=== PATIENT | male | born 1970 | race Caucasian/White ===

== ENCOUNTER → 2017-05-21 | Outpatient (CLI) | payer OTHER ==
[2016-04-16 10:30] VITALS: BP 121/72
[~2017-05-21] MED LIST: HYDR1TAB10 PO
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
== END | disposition home or self-care (01) ==
LOC: RAD 15:21
PROVIDERS: ATTEND Family Medicine
DX: M19.012 Primary osteoarthritis, left shoulder (principal); G89.29 Other chronic pain; V29.9XXD Motorcycle rider (driver) (passenger) injured in unspecified traffic accident, subsequent encounter
CPT/HCPCS: 73030

== ENCOUNTER → 2018-06-18 | Outpatient (CLI) | payer OTHER ==
[2016-04-16 10:30] VITALS: BP 121/72
[~2018-06-18] MED LIST changes: +IOHEXOL 240 MG/ML 50ML VIAL. ONE; +IOHEXOL 240 MG/ML 50ML VIAL. PO ONE; +IOHEXOL 300 MG/ML 75 ML VIAL. IV ONE
--- NOTE | 2018-06-18 13:30 | RAD ---
Examination: CT of the abdomen pelvis with oral and IV contrast HISTORY: History of right lower quadrant abdominal pain for 2 weeks COMPARISON: None available Technique: Axial CT images of the abdomen pelvis were performed with IV and oral contrast. Coronal and sagittal reformats are performed Exposure: One or more of the following individualized dose reduction techniques were utilized for this examination: 1. Automated exposure control 2. Adjustment of the mA and/or kV according to patient size 3. Use of iterative reconstruction technique FINDINGS: The visualized bibasilar lungs are clear. No evidence of free air identified in the abdomen. Small subcentimeter hypodensities identified in the liver is difficult to characterize probably cyst. The visualized spleen, adrenals grossly appears unremarkable. The gallbladder is mildly distended. The stomach is mildly distended. The visualized pancreas grossly appears unremarkable The small bowel is nondilated. Appendix is normal. Feces and gas noted in the colon. There is moderate inflammatory fat stranding identified in the distal sigmoid colon likely acute diverticulitis. There is a small fluid density identified abutting the wall of the sigmoid colon measuring 1 cm could be a small intramural abscess. Multiple sigmoid colon diverticulosis identified. The bilateral kidneys enhance symmetrically. Moderate degenerative changes lumbar spine. IMPRESSION: 1. Moderate inflammatory fat stranding identified about the sigmoid colon likely acute diverticulitis with a small 1 cm focus of fluid density identified abutting the sigmoid colon wall likely intramural abscess. Electronically signed by: Kilo Barraza MD (06/18/2018 1:26 PM) [id number]
== END | disposition home or self-care (01) ==
LOC: CT 12:05
PROVIDERS: ATTEND Nurse Practitioner Family
DX: K57.30 Diverticulosis of large intestine without perforation or abscess without bleeding (principal); E65 Localized adiposity; K82.8 Other specified diseases of gallbladder; K31.89 Other diseases of stomach and duodenum; Z87.891 Personal history of nicotine dependence
CPT/HCPCS: 74177; Q9966; Q9967

== ENCOUNTER → 2018-09-11 | Outpatient (CLI) | payer OTHER ==
[2016-04-16 10:30] VITALS: BP 121/72
[~2018-09-11] MED LIST changes: -IOHEXOL 240 MG/ML 50ML VIAL. ONE; -IOHEXOL 240 MG/ML 50ML VIAL. PO ONE; -IOHEXOL 300 MG/ML 75 ML VIAL. IV ONE
--- NOTE | 2018-09-11 14:53 | RAD ---
History: Painful lump on the lateral side of the foot. Comparison: None. Findings: AP, lateral, and oblique views of left foot. No acute fracture or dislocation is identified. No significant osseous abnormality is identified. No focal soft tissue swelling is appreciated. Impression: No acute radiographic abnormality identified. Electronically signed by: Alex Ramey MD (09/11/2018 2:50 PM) [id number]
== END | disposition home or self-care (01) ==
LOC: RAD 08:07
PROVIDERS: ATTEND Family Medicine
DX: M79.672 Pain in left foot (principal)
CPT/HCPCS: 73630

== ENCOUNTER 2019-03-31 14:06 | Emergency (ER) | payer OTHER ==
[~2019-03-31] VITALS: Ht 182.9 cm; Wt 81.3 kg
[2019-03-31 14:20] VITALS: BP 137/96
--- NOTE | 2019-03-31 14:45 | PHYS DOC ---
Past History Past Medical History: No Pertinent History Past Surgical History: No Surgical History Alcohol Use: Occasionally Drug Use: None Adult General Chief Complaint Chief Complaint: UPPER EXTREMITY INJURY HPI HPI 48-year-old male presents with laceration of the right dorsum of the hand. The patient was swinging a hammer when he caught his skin on a nail that was protruding through the wood. He looked down and realized he had a 2 cm laceration. When he flexed his fingers it opened up. He decided it likely needed sutures. He was able to control the bleeding. His tetanus is out of date. He denies any other injuries or complaints. Review of Systems Review of Systems Constitutional: Denies fever or chills [] Eyes: Denies change in visual acuity, redness, or eye pain [] HENT: Denies nasal congestion or sore throat [] Respiratory: Denies cough or shortness of breath [] Cardiovascular: No additional information not addressed in HPI [] GI: Denies abdominal pain, nausea, vomiting, bloody stools or diarrhea [] : Denies dysuria or hematuria [] Musculoskeletal: Denies back pain or joint pain [] Integument: Laceration right hand[] Neurologic: Denies headache, focal weakness or sensory changes [] Endocrine: Denies polyuria or polydipsia [] All other systems were reviewed and found to be within normal limits, except as documented in this note. Current Medications Current Medications Current Medications Medications (Trade) Dose Ordered Sig/Xenia Start Time Stop Time Status Last Admin Dose Admin Diphtheria/ Tetanus/Acell Pertussis (Boostrix) 0.5 ml ONCE ONCE 03/31/19 14:45 03/31/19 14:46 UNV Allergies Allergies Allergies Coded Allergies Type Severity Reaction Last Updated Verified Penicillins Allergy Unknown 04/16/16 Yes Physical Exam Physical Exam Constitutional: Well developed, well nourished, no acute distress, non-toxic appearance. [] HENT: Normocephalic, atraumatic, bilateral external ears normal, oropharynx moist, no oral exudates, nose normal. [] Eyes: PERRLA, EOMI, conjunctiva normal, no discharge. [] Neck: Normal range of motion, no tenderness, supple, no stridor. [] Cardiovascular:Heart rate regular rhythm, no murmur [] Lungs & Thorax: Bilateral breath sounds clear to auscultation [] Abdomen: Bowel sounds normal, soft, no tenderness, no masses, no pulsatile mas ses. [] Skin: 2 cm laceration of the dorsum of the right hand just proximal to the third MCP joint[] Back: No tenderness, no CVA tenderness. [] Extremities: No tenderness, no cyanosis, no clubbing, ROM intact, no edema. [] Neurologic: Alert and oriented X 3, normal motor function, normal sensory function, no focal deficits noted. [] Psychologic: Affect normal, judgement normal, mood normal. [] Current Patient Data Vital Signs Vital Signs Date Time Temp Pulse Resp B/P (MAP) Pulse Ox O2 Delivery O2 Flow Rate FiO2 03/31/19 14:20 98.4 78 18 97 Room Air EKG EKG [] Radiology/Procedures Radiology/Procedures [] Course & Med Decision Making Course & Med Decision Making Pertinent Labs and Imaging studies reviewed. (See chart for details) I was able to repair the patient's laceration was sutures. See note below for more details. We gave him his tetanus shot in the ED. He is stable for discharge at this time. [] Dragon Disclaimer Dragon Disclaimer This electronic medical record was generated, in whole or in part, using a voice recognition dictation system. Laceration Repair Lac Repair Indication: []2 cm linear laceration of the dorsum right hand Procedure: Verbal consent was obtained from the patient for suture repair of his linear laceration. The wound was thoroughly irrigated with saline to his face. No foreign bodies were found. 1% lidocaine with epinephrine was used for anesthesia. A total of 2 mL was used. Once adequate anesthesia was achieved, I repaired the laceration with 5 4-0 Ethilon sutures in an interrupted fashion. There was good skin approximation. Bleeding was controlled. A clean dry dressing was applied to the area. Total repaired wound length: 2 cm. Other Items: None The patient tolerated the procedure well.. Complications: None Departure Departure: Referrals: YI BELLAMY MD (PCP) JANNETH FLORES DO March 31, 2019 14:45
[2019-03-31] MEDS ORDERED: DIPHTH,PERTUSS(ACELL),TET TOX 0.5 ML DISP.SYRIN. VAX IM ONE (15:00)
== END 2019-03-31 14:55 | disposition home or self-care (01) ==
LOC: ER 14:06
DX: S61.411A Laceration without foreign body of right hand, initial encounter (principal); Z88.0 Allergy status to penicillin; W26.8XXA Contact with other sharp object(s), not elsewhere classified, initial encounter; Y93.89 Activity, other specified; Y92.89 Other specified places as the place of occurrence of the external cause; Y99.8 Other external cause status
CPT/HCPCS: 12001; 90471; 90715; 99283-25

== ENCOUNTER → 2019-04-02 | Outpatient (CLI) | payer OTHER ==
[2019-03-31 14:20] VITALS: BP 137/96
[~2019-04-02] MED LIST changes: +IOHEXOL 240 MG/ML 50ML VIAL. ONE; +IOHEXOL 300 MG/ML 75 ML VIAL. IV ONE
--- NOTE | 2019-04-02 12:18 | RAD ---
EXAM: Abdomen sonogram. HISTORY: Diarrhea. Pain. TECHNIQUE: Sonographic imaging of the abdomen was performed. COMPARISON: CT dated 06/18/2018. FINDINGS: The liver is normal in size. No focal hepatic lesion is seen. The gallbladder is unremarkable. The common bile duct is normal in caliber. The kidneys, pancreas, spleen, aorta and inferior vena cava are unremarkable. IMPRESSION: Unremarkable abdomen sonogram. Note is made that small hypodense lesions within the liver demonstrated on the prior CT demonstrate no sonographic correlate, likely due to imaging technique. Electronically signed by: Rosemarie Jenkins MD (04/02/2019 12:15 PM) [facility]
--- NOTE | 2019-04-02 12:37 | RAD ---
CT ABD PELV W/ORAL IV CONTRAST Indication: Abdominal pain, diarrhea, rectal bleeding Technique: Postcontrast CT imaging was performed of the abdomen pelvis, multiplanar reconstruction images submitted. Oral contrast was also given. One or more of the following individualized dose reduction techniques were utilized for this examination: 1. Automated exposure control 2. Adjustment of the mA and/or kV according to patient size 3. Use of iterative reconstruction technique. Comparison: June 18, 2018 Findings: There is no abnormality of the limited visualized lung bases. No new focal abnormality is identified of the liver, 3 small hypodense foci unchanged and too small to accurately characterize, largest about 0.5 cm more inferiorly of the right lobe of the liver which has more cystlike characteristics on coronal images. No new focal abnormality is identified of the pancreas or spleen. There is no adrenal nodularity. Gallbladder is present without obvious intraluminal abnormality by CT. Both kidneys enhance, no hydronephrosis. Bowel is not significantly dilated. There is no free fluid or free air. Normal caliber appendix is visualized. The descending and sigmoid colon are not opacified with oral contrast during the exam. There is [id number] proximal to mid sigmoid colonic wall thickening at which there are diverticula present although degree of wall thickening not quite as prominent as previously, no adjacent significant inflammatory type change. No new significantly enlarged nodes are identified of the abdomen or pelvis. There are some small scattered mesenteric and retroperitoneal nodes as seen previously. There is sclerotic endplate change on the left at L4-5 as seen previously, degenerative disc disease at this level. There is mild lumbar levoscoliosis. There is again apparently 1.5 cm transverse umbilical fascial defect, no internal bowel. IMPRESSION: 1. There is persistent although overall decreased degree of wall thickening of the proximal to mid sigmoid colon, could be due to sequela of diverticulitis. However colon screening should be considered if this has not been performed. There is no significant inflammatory type change about the bowel. 2. There are again a few small hypodense foci of the liver otherwise too small to accurately characterize. Electronically signed by: Ihsan Tee MD (04/02/2019 12:34 PM) [id number]
== END | disposition home or self-care (01) ==
LOC: US 10:16
PROVIDERS: ATTEND Family Medicine
DX: K63.89 Other specified diseases of intestine (principal); R59.0 Localized enlarged lymph nodes; M51.36 Other intervertebral disc degeneration, lumbar region; K62.5 Hemorrhage of anus and rectum
CPT/HCPCS: 74177; 76700; Q9967

== ENCOUNTER → 2019-04-03 | Outpatient (CLI) | payer OTHER ==
[2019-03-31 14:20] VITALS: BP 137/96
[~2019-04-03] MED LIST changes: -IOHEXOL 240 MG/ML 50ML VIAL. ONE; -IOHEXOL 300 MG/ML 75 ML VIAL. IV ONE
[2019-04-03 11:44] LABS: BASO # 0.1 x10^3/uL (0.0-0.2); BASO % 1 % (0-3); EOS # 0.2 x10^3/uL (0.0-0.7); EOS % 3 % (0-3); HEMATOCRIT 49.2 % (39.0-53.0); HEMOGLOBIN 17.2 g/dL (13.0-17.5); LYMPH # 1.6 x10^3/uL (1.0-4.8); LYMPH % 21 % (24-48); MEAN CORPUSCULAR HEMOGLOBIN 32 pg (25-35); MEAN CORPUSCULAR HGB CONC 35 g/dL (31-37); MEAN CORPUSCULAR VOLUME 92 fL (79-100); MONO # 0.6 x10^3/uL (0.0-1.1); MONO % 8 % (0-9); NEUT # 5.1 x10^3uL (1.8-7.7); NEUT % 68 % (31-73); PLATELET COUNT 297 x10^3/uL (140-400); RED BLOOD COUNT 5.32 x10^6/uL (4.30-5.70); RED CELL DISTRIBUTION WIDTH 13.2 % (11.5-14.5); WHITE BLOOD COUNT 7.5 x10^3/uL (4.0-11.0)
[2019-04-03 11:50] LABS: ALBUMIN 4.2 g/dL (3.4-5.0); ALBUMIN/GLOBULIN RATIO 1.2 (1.0-1.7); CALCIUM 9.5 mg/dL (8.5-10.1); CREATININE 0.9 mg/dL (0.7-1.3); GFR 90.1; POTASSIUM 4.2 mmol/L (3.5-5.1); TOTAL BILIRUBIN 0.3 mg/dL (0.2-1.0); TOTAL PROTEIN 7.8 g/dL (6.4-8.2)
== END | disposition home or self-care (01) ==
LOC: LAB 08:07
PROVIDERS: ATTEND Family Medicine
DX: R14.0 Abdominal distension (gaseous) (principal); R19.7 Diarrhea, unspecified; K62.5 Hemorrhage of anus and rectum; R32 Unspecified urinary incontinence
CPT/HCPCS: 36415; 80053; 85025; G0103

== ENCOUNTER → 2019-05-07 | Outpatient (CLI) | payer OTHER ==
[2019-04-05 14:16] VITALS: BP 111/76
== END | disposition home or self-care (01) ==
LOC: LAB 09:28
PROVIDERS: ATTEND Family Medicine
DX: E78.01 Familial hypercholesterolemia (principal)
CPT/HCPCS: 80061